=== PATIENT | female | born 1995 | race American Indian/Alaskan Native ===

== ENCOUNTER 2017-12-16 11:37 | Emergency (ER) | payer OTHER ==
[2017-12-16 11:44] VITALS: RESP 18; TEMP 98.2; O2SAT 100; BMI 30.7
[2017-12-16 12:41] LABS: URINE BILIRUBIN NEGATIVE (NEGATIVE); URINE BLOOD TRACE-INTACT (NEGATIVE); URINE GLUCOSE (UA) NEGATIVE (NEGATIVE); URINE LEUKOCYTE ESTERASE LARGE Leu/uL (NEGATIVE); URINE PROTEIN NEGATIVE mg/dL (<30 mg/dL); URINE UROBILINOGEN 0.2 E.U./dL (<1 E.U./dL)
[2017-12-16 12:50] LABS: URINE APPEARANCE CLEAR (CLEAR); URINE COLOR YELLOW (YELLOW)
[2017-12-16 13:14] LABS: URINE BACTERIA MANY (NEG); URINE WBC 25 - 30 /hpf (0-6)
[2017-12-16] MEDS ORDERED: cefTRIAXone (Rocephin) 250 mg Inj IM STA (14:17)
[2017-12-16 14:49] VITALS: BP 135/70; PULSE 78
--- NOTE | 2017-12-16 15:13 | ED PDOC ---
Arrival/HPI - General Chief Complaint: Female Genitourinary Time Seen by Provider: 12/16/17 12:02 Historian: Patient - History of Present Illness Narrative History of Present Illness (Text): 12/16/17 15:43 22-year-old female presents with labial pain. Patient states 2 days ago she was having "rough sex" with her boyfriend and the next morning she woke up and she noticed that she was having some burning and pain to the right side of the labia. Patient states that over the past few days she's developed swelling to the right labia. No medications have been taken for pain at home. Patient states she also developed vaginal discharge and vaginal irritation. She denies any urinary symptoms. No abdominal pain. No fevers or chills. She denies dizziness or weakness. No other complaints. Past Medical History - Provider Review Nursing Documentation Reviewed: Yes - Travel History Have you recently traveled outside [place] w/in the past 3 mons?: No - Infectious Disease Hx of Infectious Diseases: None - Tetanus Immunization Tetanus Immunization: Unknown - Psychiatric Hx Psychophysiologic Disorder: No Hx Substance Use: Yes (marijuana) - Surgical History Hx Section: Yes (x2) Family/Social History - Physician Review Nursing Documentation Reviewed: Yes Family/Social History: Unknown Family HX Smoking Status: Light Smoker < 10 Cigarettes Daily Hx Alcohol Use: Yes Frequency of alcohol use: Socially Hx Substance Use: Yes (marijuana) Allergies/Home Meds Allergies/Adverse Reactions: Allergies peanut Allergy (Verified 12/16/17 11:50) ANAPHYLAXIS pineapple Allergy (Verified 12/16/17 11:50) ANAPHYLAXIS Seafood Allergy (Uncoded 12/16/17 11:50) ANAPHYLAXIS Shellfish Allergy (Uncoded 12/16/17 11:50) ANAPHYLAXIS Review of Systems - Review of Systems Constitutional: absent: Fatigue, Fevers Respiratory: absent: SOB, Cough Cardiovascular: absent: Chest Pain, Palpitations Gastrointestinal: absent: Abdominal Pain, Constipation, Diarrhea, Nausea, Vomiting Genitourinary Female: Vaginal Discharge, Other (vaginal swelling). absent: Dysuria, Frequency, Hematuria, Urine Output Changes Musculoskeletal: absent: Arthralgias, Back Pain, Neck Pain Skin: Other. absent: Rash Psychiatric: absent: Anxiety, Depression Physical Exam Vital Signs Reviewed: Yes Vital Signs Temp Pulse Resp BP Pulse Ox 12/16/17 14:48 78 18 135/70 100 12/16/17 13:18 81 18 138/79 100 12/16/17 11:43 98.2 F 86 18 142/85 100 Temperature: Afebrile Blood Pressure: Normal Pulse: Regular Respiratory Rate: Normal Appearance: Positive for: Well-Appearing, Non-Toxic, Comfortable Pain Distress: None Mental Status: Positive for: Alert and Oriented X 3 - Systems Exam Head: Present: Atraumatic Mouth: Present: Moist Mucous Membranes Neck: Present: Normal Range of Motion Respiratory/Chest: Present: Clear to Auscultation, Good Air Exchange. No: Respiratory Distress, Accessory Muscle Use Cardiovascular: Present: Regular Rate and Rhythm, Normal S1, S2. No: Murmurs Abdomen: No: Tenderness, Rebound, Guarding Genitourinary/Pelvic Exam: Present: Vaginal Discharge (yellow green vaginal discharge noted; + swelling noted to the right labia minora with slight induration without fluctuance. ), Other (chaparoned by Tiarra FRASER RN). No: Normal External Genitalia, Vaginal Bleeding, Vaginal Lesions, Adenexal Tenderness, Adenexal Mass, Cervical Motion Tendernes, Cervical os Closed Back: Present: Normal Inspection Upper Extremity: Present: Normal ROM Lower Extremity: Present: Normal ROM Neurological: Present: GCS=15 Skin: Present: Warm, Dry Psychiatric: Present: Alert, Oriented x 3 Medical Decision Making ED Course and Treatment: 12/16/17 Patient nontoxic well-appearing no distress. Patient with swelling to the right labia with a vaginal discharge. Patient with induration to the right labia minora and swelling without signs of abscess at present time. Urinalysis positive leukocytes positive bacteria positive yeast HCG negative Gonorrhea and Chlamydia cultures are pending Toradol was given for pain Rocephin IM and Zithromax PO given to cover for vaginal discharge urinalysis shows yeast will discharge home with Diflucan x 1 Patient was seen and evaluated by dr. nelson pt with possible early infection/abscess; will cover with doxycycline and f/u with [employer]NA[employer] OF [employer]. will given with keflex for Uti. Patient reassessment: Patient is feeling better after medications. Vital signs are stable. I discussed all results in depth with the patient. I've advised immediate follow-up with a fire department battalion chief. Advised immediate return if symptoms worsen persist or if new concerning symptoms develop Patient verbalizes understanding of discharge instructions and need for immediate followup. Impression: vaginal discharge, yeast infection, vaginitis, UTI Keflex one capsule twice daily times 7 days Doxycycline one tablet twice daily 7 days: Diflucan 1 tablet 1 dose Follow-up with fire department battalion chief within the next 2 days Motrin every 6 hours as needed for pain Follow up primary care physician within the next 2 days Return if symptoms worsen persist or if new symptoms develop: High fevers, continued pain, increasing swelling, or if any other concerning symptoms develop Reassessment Condition: Re-examined, Improved - Lab Interpretations Lab Results: Lab Results 12/16/17 12:20: Urine Color Yellow, Urine Appearance Clear, Urine pH 6.0, Ur Specific [place] 1.015, Urine Protein Negative, Urine Glucose (UA) Negative, Urine Ketones Negative, Urine Blood Trace-intact H, Urine Nitrate Negative, Urine Bilirubin Negative, Urine Urobilinogen 0.2, Ur Leukocyte Esterase Large H , Urine RBC 2 - 5, Urine WBC 25 - 30, Ur Epithelial Cells 6 - 8, Urine Bacteria Many, Urine Other Uyeast - Medication Orders Current Medication Orders: Azithromycin (Zithromax) 1,000 mg PO STAT STA PRN Reason: Protocol Stop: 12/16/17 15:07 Discontinued Medications Ceftriaxone Sodium (Rocephin) 250 mg IM STAT STA PRN Reason: Protocol Stop: 12/16/17 14:18 Ketorolac Tromethamine (Toradol) 60 mg IM STAT STA Stop: 12/16/17 12:33 Last Admin: 12/16/17 12:45 Dose: 60 mg MAR Pain Assessment Document 12/16/17 12:45 EQ (Rec: 12/16/17 12:46 EQ [email or web address] Pain Reassessment Is this a pain reassessment? No Sleep Is patient sleeping during reassessment? No Presence of Pain Presence of Pain Yes IM Administration Charges Document 12/16/17 12:45 EQ (Rec: 12/16/17 12:46 EQ [facility] [email or web address] Charges for Administration # of IM Administrations 1 Disposition/Present on Arrival - Present on Arrival Any Indicators Present on Arrival: No History of DVT/PE: No History of Uncontrolled Diabetes: No Urinary Catheter: No History of Decub. Ulcer: No History Surgical Site Infection Following: None - Disposition Have Diagnosis and Disposition been Completed?: Yes Diagnosis: Vaginitis, Vaginal discharge, Urinary tract infection, Yeast infection Disposition: HOME/ ROUTINE Disposition Time: 14:11 Patient Plan: Discharge Condition: GOOD Discharge Instructions (ExitCare): Urinary Tract Infections in Adults, Vaginal Discharge in Adults, Urinary Tract Infection, Adult (DC), Vaginitis, Yeast Infection (DC) Additional Instructions: Keflex one capsule twice daily times 7 days Doxycycline one tablet twice daily 7 days: Diflucan 1 tablet 1 dose Follow-up with fire department battalion chief within the next 2 days Motrin every 6 hours as needed for pain Follow up primary care physician within the next 2 days Return if symptoms worsen persist or if new symptoms develop: High fevers, continued pain, increasing swelling, or if any other concerning symptoms develop Prescriptions: Cephalexin [Keflex] 500 mg PO BID #14 capsule Doxycycline Hyclate 100 mg PO BID #14 capsule Fluconazole [Diflucan] 150 mg PO ONCE #1 tab Ibuprofen [Motrin] 600 mg PO Q6H PRN #20 tab PRN Reason: pain/fever reduction Referrals: Trupti Lopes MD [Primary Care Provider] - Follow up with primary Shoaib Duran MD [Staff Provider] - [facility] - Follow up with primary Forms: [facility] (Amharic), WORK NOTE
== END 2017-12-16 15:41 | disposition home or self-care (01) ==
LOC: ED 11:37
DX: N76.0 Acute vaginitis (principal); B37.9 Candidiasis, unspecified; N39.0 Urinary tract infection, site not specified
CPT/HCPCS: 81001; 87086; 87491; 87591; 96372; 99283; J0696; J1885